=== PATIENT | male | born 1990 | race Caucasian/White ===

== ENCOUNTER 2017-07-26 10:13 | Emergency (ER) | payer OTHER ==
[~2017-07-26] VITALS: Ht 180.3 cm; Wt 71.1 kg
[~2017-07-26 10:13] MED LIST: MULTIVITAMIN1 EAC2 PO
[2017-07-26] MEDS ORDERED: TRAZODONE HCL50 MG PO (13:30)
[2017-07-26] MEDS ORDERED: ZOFRAN ODT4 MG PO (13:30)
[2017-07-26] MEDS ORDERED: CLONIDINE HCL0.1 MG PO (13:30)
[2017-07-26 13:35] VITALS: BP 128/68
== END 2017-07-26 13:47 | disposition home or self-care (01) ==
LOC: EME 10:13
DX: F11.23 Opioid dependence with withdrawal (principal)
CPT/HCPCS: 90839; 99281; 99284; Q0177